=== PATIENT | female | born 1975 | race African-American/Black ===

== ENCOUNTER 2019-09-03 17:05 | Emergency (ER) | payer MEDICAID ==
[~2019-09-03] VITALS: Ht 165.1 cm; Wt 72.0 kg
[2019-09-03] MEDS ORDERED: ACETAMINOPHEN 325MG TABLET PO ONE (18:00)
[2019-09-03 18:27] VITALS: BP 110/89
== END 2019-09-03 18:21 | disposition home or self-care (01) ==
LOC: ER 17:05
DX: S01.112A Laceration without foreign body of left eyelid and periocular area, initial encounter (principal); W01.190A Fall on same level from slipping, tripping and stumbling with subsequent striking against furniture, initial encounter; Y93.89 Activity, other specified; Y92.038 Other place in apartment as the place of occurrence of the external cause
CPT/HCPCS: 12011; 99283